=== PATIENT | male | born 1960 | race Caucasian/White ===

== ENCOUNTER → 2018-07-08 13:33 | Outpatient (CLI) | payer OTHER, SELFPAY ==
--- NOTE | 2018-07-13 23:08 | LEAS ---
Arterial Study - Arterial Study Arterial Study: This is a 57-year-old male who presents with right lower extremity pain that is constant, but increases with ambulation, and is relieved by rest. The patient has a history of hypertension. Suspecting the presence of atherosclerotic peripheral arterial occlusive disease, the patient was brought to the noninvasive vascular laboratory at this time for the purpose of bilateral noninvasive lower extremity arterial assessment. Doppler signal assessment was used to evaluate the pulses at ankle level bilaterally. The posterior tibial and dorsalis pedis pulses were triphasic bilaterally. Segmental limb pressures were obtained at ankle level bilaterally. The right ankle pressure, as determined by posterior tibial pulse, measured at 177 mmHg. The right ankle pressure, as determined by dorsalis pedis pulse, was measured at 167 mmHg. The left ankle pressure, as determined by posterior tibial pulse, was measured at 183 mmHg. The left ankle pressure, as determined by dorsalis pedis pulse, was measured at 149 mmHg. Pulse-volume recordings were obtained bilaterally and segmentally. Waveform amplitudes appeared to be satisfactory at all levels bilaterally, including low thigh, calf, ankle, and digital levels. Resting ankle-brachial indices were calculated bilaterally. The resting right ankle?brachial index was calculated to be 1.16. The resting left ankle?brachial index was calculated to be 1.20. The patient was exercised on a treadmill at 1.8 mph and a 5% elevation. The patient was able to complete 5 minutes of exercise, though complained of right hip and thigh pain. Ankle pressures were obtained at intervals following cessation of exercise. 1 minute following cessation of exercise, the right ankle pressure was measured at 193 mmHg, and the left ankle pressure was measured at 160 mmHg. 3 minutes following cessation of exercise, the right ankle pressure was measured at 184 mmHg, and the left ankle pressure was measured at 179 mmHg. Impression: Based upon the findings of this resting and exercise noninvasive lower extremity arterial study, there is no evidence of significant atherosclerotic peripheral arterial occlusive disease in the right lower extremity. Triphasic waveforms were noted ankle level bilaterally. Resting ankle?brachial indices were bilaterally normal. The resting component of the study is normal bilaterally, without indication of significant arterial occlusive disease on either side. Following a period of exercise, the right ankle pressure augments, a normal physiological response. The left ankle pressure diminishes slightly, which may be indicative of mild arterial occlusive disease in the left lower extremity, for which clinical correlation is advised.
== END ==
PROVIDERS: Family Provider Preventive Medicine Occupational Medicine; PCP Preventive Medicine Occupational Medicine; Referring Provider Preventive Medicine Occupational Medicine; Visit Provider Preventive Medicine Occupational Medicine
DX: M79.604 Pain in right leg (principal)
CPT/HCPCS: 93924

== ENCOUNTER 2020-04-06 09:52 | Day surgery (SDC) | payer OTHER, SELFPAY ==
[2020-04-06] VITALS (7 sets, daily range): BP systolic 114–134; BP diastolic 78–87; PULSE 60–68; RESP 16; TEMP 36.3–37; O2SAT 93–98; BMI 30.7
[2020-04-06] MEDS: Lactated Ringers 1,000 ML 100 ML IV ×2 (10:20→13:54)
--- NOTE | 2020-04-06 12:05 | SPE_PTH ---
PATIENT: CAROLE MILLS [place] [facility] [place][id number] AGE/SX: 59/M ROOM: RE04/06/[address]: Dr. Nate Vernon MD : 1960 BED: DIS: 04/06/2020 SPEC #: [id number] RECD: 04/06/20 13:59 STATUS: KATHERINE HAZEL #: [id number] ZULY: 04/06/20 12:[address]: Nate Vernon DEPT: SURGICAL PATHOLOGY RECD BY: Fernanda Ortiz ENTERED: 04/07/20 12:37 SP TYPE: SPERMATOCE OTHR DR: Dr. Ottoniel Cortes DO Tissues: SPERMATOCELE Procedures: Surgery Specimen Level III HEADER OPERATION: Spermatocelectomy PRE-OP DIAGNOSIS: Left spermatocele TISSUE SUBMITTED: Spermatocele MICROSCOPIC DIAGNOSIS Spermatocele, spermatocelectomy: Consistent with spermatocele. AM:kenya 04/08/20 MICROSCOPIC DESCRIPTION Slides are reviewed. GROSS DESCRIPTION Received in fixative is one container labeled with the patient's name and designated spermatocele. The specimen consists of a piece of mckeon, indurated tissue measuring 4 x 0.7 x 0.7 cm. The specimen is inked, serially sectioned and do not reveal any obvious cyst. Also present in the container is a small collapsed cyst measuring 0.5 x 0.3 x 0.1 cm. The entire specimen is submitted in two cassettes. The collapsed cyst is present in cassette 2 and inked blue. / SJ:kenya 04/07/20 TC:5 CPT: 71384
[2020-04-06] MEDS: Cefazolin 2 GM in 0.9% Normal Saline 100 ML IV (12:16)
--- NOTE | 2020-04-06 12:17 | HP.PCM_ITS ---
History of Present Illness Date of Admission: 04/06/20 Chief Complaint: Left symptomatic spermatocele The patient is a 59 year old male with a very tender left symptomatic spermatocele plan to proceed with removal of spermatocele Past Medical History Allergies No Known Allergies Allergy (Verified 04/06/20 10:14) Home Medications: Ambulatory Orders Medication Instructions Recorded Aspirin E.C. [Ecotrin] 81 mg PO DAILY@0800 03/28/20 Carboxymethylcellulose Sodium 15 ml OP DAILY 03/28/20 [Artificial Tears] Diltiazem HCl [Cartia Xt] 240 mg PO DAILY 03/28/20 Hydrochlorothiazide [Hctz] 12.5 mg PO DAILY 03/28/20 Surgical History: no surgical history Smoking Status: Never smoker Tobacco Use: Non-smoker Review of Systems Constitutional: Denies: Chills, Fever, Weight Change HEENT: Denies: Head Aches, Sinus Congestion, Sinus Drainage Cardiovascular: Denies: Chest Pain, Palpitations Respiratory: Denies: Cough, Shortness of breath at rest, Sputum production Gastrointestinal: Denies: Abdominal Pain, Nausea, Vomiting Genitourinary: Denies: Dysuria Musculoskeletal: Denies: Joint Pain, Joint Tenderness Skin: Denies: Rash, Wounds Neurological: Denies: Numbness, Tingling, Focal weakness Psychiatric: Denies: Anxiety, Depression, Homicidal Ideations, Suicidal Ideatio ns Hematologic/ Lymphatic: Denies: Easy Bruising, Easy Bleeding VTE Information - Inpt Only VTE Present on Admission: No - Physical Exam Vitals/I&O's: Vital Signs Temp Pulse Resp BP Pulse Ox 98.6 F 68 16 134/87 H 97 04/06/20 10:13 04/06/20 10:13 04/06/20 10:13 04/06/20 10:13 04/06/20 10:13 Oxygen Delivery Method Room Air Weight: 99.7 kg Body Mass Index (BMI) 30.7 General: Alert, Oriented x3, Cooperative HEENT: Atraumatic, PERRLA, EOMI, Normocephalic Neck: Supple, No JVD, Negative Carotid Bruits Lungs: Clear to auscultation, Normal air movement Cardiovascular: Regular rate, No murmurs Abdomen: Bowel Sounds Present, Soft, Non Tender Extremities: No edema, Capillary Refill Less than 3 Seconds Skin: No rashes, No breakdown Musculoskeletal: No Tenderness to Palpation of Joints or Extremities Neurological: Cranial nerves II-XII grossly intact Psych/Mental Status: Normal Affect, Appropriate Current Medications Cefazolin Sodium 2 gm/ Sodium (Chloride) 110 mls @ 150 mls/hr IV PREOP ONE Stop: 04/06/20 12:33 Lactated Ringer's () 1,000 mls @ 100 mls/hr IV .Q10H HÉCTOR Last Admin: 04/06/20 10:20 Dose: 100 mls/hr Documented by: Assessment/Plan Plan to proceed with left spermatocelectomy
--- NOTE | 2020-04-06 12:20 | PCM.DC.URO ---
Discharge Diet: Light diet - advance as tolerated Discharge Activity: Return to Normal Activity Suture Line Care: Avoid Pulling/Pushing, Avoid Pinching/Bending Allergies/Adverse Reactions: Allergies No Known Allergies Allergy (Verified 04/06/20 10:14) Medications to take at Discharge Aspirin E.C. [Ecotrin] 81 mg PO DAILY@0800 03/28/20 Carboxymethylcellulose Sodium [Artificial Tears] 15 ml OP DAILY 03/28/20 Diltiazem HCl [Cartia Xt] 240 mg PO DAILY 03/28/20 Hydrochlorothiazide [Hctz] 12.5 mg PO DAILY 03/28/20 Cephalexin [Keflex] 500 mg PO Q8 #9 cap 04/06/20 Hydrocodone/Acetaminophen [[place] 5-325 Tablet] 1 each PO Q6H PRN PRN 5 Days #10 tablet 04/06/20 The following prescriptions were given: Cephalexin [Keflex] 500 mg PO Q8 #9 cap Transmission Status: Pending to [address] Hydrocodone/Acetaminophen [[place] 5-325 Tablet] 1 each PO Q6H PRN PRN 5 Days #10 tablet PRN Reason: Pain Score 1-10/10 Transmission Status: Received by [address] Primary Care Physician: Ottoniel Cortes DO [Primary Care Provider] - Test Results: Test results from this visit will be discussed in further detail at your follow-up appointment, if applicable. Please Follow Up With: Nate Vernon MD When: in 2 weeks, please call to make an appointment.
[2020-04-06] MEDS: Bupivacaine Mpf 0.5% 30 ML VIAL (12:40)
--- NOTE | 2020-04-06 12:55 | PCM.OPRPT ---
Report of Operation Date of Procedure: 04/06/20 Pre-Operative Diagnosis: Left spermatocele Post-Operative Diagnosis: The same Surgery/Procedure Performed:: Left spermatocele ectomy Description of Surgical Findings:: 59-year-old male was taken back to the operating room at the smooth induction of general anesthesia he was placed in dorsolithotomy position, the scrotum was shaved and prepped and draped in usual fashion palpated the spermatocele over the top of the left testicle made a small 2 cm incision over the spermatocele dissected down to the dartos layer and came into the tunica albuginea open this up grabbed the spermatocele with a clamp dissected the spermatocele off the testicle with electrocautery and the spermatocele was then removed I then placed the testicle back into the sac close the sac with a chromic and then closed the skin with subcuticular stitches. Patient anesthetic was reversed taken back to PACU good condition he was drops and fluffs and scrotal support was placed on the scrotum. Type of Anesthesia:: General Drains: none - Admit VTE Documentation VTE Present on Admission: No VTE Mechan Device Prophylaxis: SCD's
[2020-04-06] MEDS: HYDROcodone Bitartrate/Apap 5/325 Tablet PO (13:54)
== END 2020-04-06 14:48 | disposition home or self-care (01) ==
LOC: SDC 09:53 → AC 09:55
PROVIDERS: Anesthesiology; PCP Preventive Medicine Occupational Medicine; Referring Provider Urology; Visit Provider Urology
PROC: (CPT 54840; principal; 2020-04-06 11:50)
DX: N43.41 Spermatocele of epididymis, single (principal); I10 Essential (primary) hypertension; Z95.0 Presence of cardiac pacemaker; Z11.59 Encounter for screening for other viral diseases; Z79.82 Long term (current) use of aspirin; Z79.899 Other long term (current) drug therapy
CPT/HCPCS: 54840; 87635; 88304; 94799; J7120; J2405; U0003